=== PATIENT | male | born 1995 | race Caucasian/White ===

== ENCOUNTER → 2023-03-31 15:11 | Outpatient (CLI) | payer BC, SELFPAY ==
--- NOTE | ~2023-03-31 | XR_ITS ---
EXAMINATION: XR chest 2V DATE: 03/31/2023 15:35 INDICATION: Bronchospasm. TECHNIQUE: Frontal and lateral views of the chest were obtained. COMPARISON: None. FINDINGS: There is collapse of left lung lower lobe. No pleural effusion or pneumothorax. The heart s ize is normal. IMPRESSION: 1. Left lower lobe collapse. Reviewed, dictated and finalized at location A. IFIED NOVELL ADMINISTRATOR
== END ==
PROVIDERS: PCP Family Medicine; Visit Provider Family Medicine
DX: J98.01 Acute bronchospasm (principal); J98.19 Other pulmonary collapse
CPT/HCPCS: 71046

== ENCOUNTER 2023-04-23 19:49 | Emergency (ER) | payer BC, SELFPAY ==
--- NOTE | ~2023-04-23 | XR_ITS ---
EXAMINATION: XR chest 2V DATE: 04/23/2023 20:15 INDICATION: Shortness of breath. Cough. TECHNIQUE: Frontal and lateral views of the chest were obtained. COMPARISON: Chest 2 views 03/31/2023 FINDINGS: There is persisting collapse of left lower lobe. No pleural effusion or pneumothorax. The h eart size is normal. IMPRESSION: 1. Persistent collapse of left lung lower lobe. Consider chest CT with contrast. Reviewed, dictated and finalized at location E. ETING TEACHER IMPRESSION: 1. Persistent collapse of left lung lower lobe. Consider chest CT with contrast .
--- NOTE | ~2023-04-23 | CT_ITS ---
Clinical Indication: Dyspnea CT Scan of the Chest with Contrast: Technique: Contiguous sections were acquired throughout the chest after intravenous administration of 100 cc of Omnipaque 350. Dose reduction technique was used on this scan by utilizing automated expos ure control and iterative reconstruction technique. The dose-length product (DLP) was 462.56 mGy-cm. Findings: There is no evidence of any significant mediastinal, hilar or axillary lymphadenopathy. There is no f illing defect in the pulmonary arterial tree to suggest pulmonary embolus. There is no evidence of ao rtic dissection or aneurysm. There is no evidence of pleural or pericardial effusion. There is complete left lower lobe atelectasis. Remainder of the lungs are clear. Images through the upper abdomen reveal no abnormalities. Impression: No evidence of pulmonary embolus, aortic dissection, or aortic aneurysm. Complete left lower lobe atelectasis. If there is concern for obstruction/endobronchial lesion, consi noelle bronchoscopy. No mass lesion is well delineated on this exam. Reviewed, dictated and finalized at [facility]. SURE CONTROL SUPERVISOR Impression: No evidence of pulmonary embolus, aortic dissection, or aortic aneurysm. Complete left lower lobe atelectasis. If there is concern for obstruction/endob ronchial lesion, consider bronchoscopy. No mass lesion is well delineated on th is exam.
[2023-04-23 19:50] VITALS: BP 117/67; PULSE 89; RESP 18; TEMP 36.6; O2SAT 98
[2023-04-23 23:54] VITALS: BP 128/69; PULSE 85; PULSE 88; RESP 17; TEMP 37.3; O2SAT 99
[2023-04-23 23:55] VITALS: O2SAT 100
[2023-04-23 23:57] VITALS: O2SAT 100
[2023-04-24 00:50] LABS: Basophils Percent Auto 0.2 % (0.2-1.2); Eosinophils Percent Auto 0.6 % (0-4.4); Hematocrit 44.8 % (42.0-52.0); Hemoglobin 14.9 g/dL (14.0-18.0); Immature Granulocyte Absolute 0.02 K/mm3 (0.00-0.031); Immature Granulocyte Percent A 0.4 % (0-0.5); Immature Platelet Fraction Pct 2.7 % (0.9-11.2); Lymphocytes Absolute Auto 1.07 K/mm3 (0.9-3.2); Lymphocytes Percent Auto 21.1 % (18.3-44.2); Mean Corpuscular HGB Conc 33.3 g/dl (32-36); Mean Corpuscular Hemoglobin 28.8 pg (26-34); Mean Corpuscular Volume 86.7 fl (80-100); Mean Platelet Volume 9.3 fl (7.4-10.4); Monocytes Absolute Auto 0.5 K/mm3 (0.1-0.6); Monocytes Percent Auto 10.5 % (2.6-8.5); Neutrophils Absolute Auto 3.4 K/mm3 (1.3-6.7); Neutrophils Percent Auto 67.2 % (45.5-73.1); Platelet Count Result 130 k/mm3 (150-375); Red Blood Count 5.17 M/mm3 (4.6-6.20); Red Cell Distribution Width 12.9 % (11.5-14.5); White Blood Count 5.1 K/mm3 (4.5-10.0)
[2023-04-24 00:54] LABS: Lactic Acid Reflex 1.1 mmol/L (0.7-2.0)
[2023-04-24 00:56] LABS: Alanine Aminotransferase 29 U/L (6-50); Albumin Level 4.3 g/dL (3.5-5.1); Alkaline Phosphatase 82 U/L (38-126); Anion Gap 9 mmol/L (8-16); Aspartate Amino Transferase 33 U/L (17-59); Bilirubin,Total 0.7 mg/dL (0.2-1.3); Blood Urea Nitrogen 11 mg/dL (9-20); Calcium 8.2 mg/dL (8.4-10.2); Carbon Dioxide 33 mmol/L (22-30); Chloride 95 mmol/L (98-107); Estimated CRCL calculation 121 ml/min; Estimated Glomerular Filt Rate > 60; Glucose 82 mg/dL (65-110); Potassium 3.1 mmol/L (3.4-5.0); Sodium 137 mmol/L (137-145)
[2023-04-24 01:12] LABS: Procalcitonin 0.3 ng/mL
[2023-04-24 01:16] VITALS: BP 134/80; PULSE 75; RESP 20; O2SAT 100
[2023-04-24 01:19] LABS: Influenza A QL RT-PCR Negative (Negative); Influenza B QL RT-PCR Negative (Negative); RSV RNA, RT-PCR Negative (Negative); SARS-CoV-2 RNA PCR Negative (Negative)
--- NOTE | 2023-04-24 01:43 | ED.GENADULT ---
HPI - General Adult General Chief complaint: Shortness of Breath/Dyspnea Stated complaint: sob Time Seen by Provider: 04/23/23 23:59 History of Present Illness HPI narrative: patient is a 28-year-old who presents emergency department chief complaint of shortness of breath patient reports that he has history of a left lower lobe collapse due to a bronchus obstruction the patient reports that he has had a bronchoscopy before in the past and reports that he had a chest x-ray that was positive several weeks ago and reports that he is continuing to have some shortness of breath at times and reports that he has been unable to get in to have a facility do a bronchoscopy on him and decided to come to our emergency department. The patient reports that he has had subjective fevers at home of reports that the symptoms are not improved by anything. Related Data Allergies Allergy/AdvReac Type Severity Reaction Status Date / Time No Known Allergies Allergy Verified 04/23/23 23:55 Review of Systems Review of Systems: A 10 system review of systems was completed on the patient and is negative except for what is stated in the HPI. Nursing and ancillary documentation was reviewed. Exam Narrative: GENERAL: Well-appearing, well-nourished, and in no acute distress. HEAD: Normocephalic, atraumatic. EYES: PERRLA and EOMI. ENT: Nares clear, no rhinorrhea or epistaxis. Mucous membranes moist. NECK: Supple. CHEST: Clear to auscultation. No respiratory distress. HEART: Regular rate and rhythm. No murmur heard. Normal peripheral pulses. ABDOMEN: Soft, nontender, nondistended, normal active bowel sounds. EXTREMITIES: Normal range of motion. No edema. SKIN: Warm, dry, no rash. NEURO: No focal deficits. Alert and oriented x3. PSYCH: Normal mood and affect. Course Vital Signs Vital signs: Vital Signs Temperature 36.6 C 04/23/23 19:50 Pulse Rate 89 04/23/23 19:50 Respiratory Rate 18 04/23/23 19:50 Blood Pressure 117/67 04/23/23 19:50 Pulse Oximetry 98 04/23/23 19:50 Oxygen Delivery Room Air 04/23/23 19:50 Temperature 37.3 C 04/23/23 23:54 Pulse Rate 84 04/24/23 02:30 Respiratory Rate 32 H 04/24/23 02:30 Blood Pressure 118/76 04/24/23 02:30 Pulse Oximetry 97 04/24/23 02:30 Oxygen Delivery Room Air 04/23/23 23:57 Medical Decision Making MDM Narrative Medical decision making narrative: differential diagnosis includes segmental collapse, pneumonia, mucous plugging patient is currently not tachypneic the patient is afebrile CT chest was obtained to evaluate the extensiveness of the collapse. There is no pneumothorax on chest x-ray we do not have pulmonary capability at this time for bronchoscopy the plan was after results to speak with Pulmonary at another facility to either arrange follow-up or transfer. The patient states that he needs to go to work and chose to leave the emergency department at this time. Vital Signs Vital Signs: Vital Signs Temperature 36.6 C 04/23/23 19:50 Pulse Rate 89 04/23/23 19:50 Respiratory Rate 18 04/23/23 19:50 Blood Pressure 117/67 04/23/23 19:50 Pulse Oximetry 98 04/23/23 19:50 Oxygen Delivery Room Air 04/23/23 19:50 Temperature 37.3 C 04/23/23 23:54 Pulse Rate 84 04/24/23 02:30 Respiratory Rate 32 H 04/24/23 02:30 Blood Pressure 118/76 04/24/23 02:30 Pulse Oximetry 97 04/24/23 02:30 Oxygen Delivery Room Air 04/23/23 23:57 Lab Data 04/24/23 00:33 04/24/23 00:33 Labs: Lab Results 04/24/23 Range/Units 00:33 WBC 5.1 (4.5-10.0) K/mm3 RBC 5.17 (4.6-6.20) M/mm3 Hgb 14.9 (14.0-18.0) g/dL Hct 44.8 (42.0-52.0) % MCV 86.7 (80-100) fl MCH 28.8 (26-34) pg MCHC 33.3 (32-36) g/dl RDW 12.9 (11.5-14.5) % Plt Count 130 L (150-375) k/mm3 MPV 9.3 (7.4-10.4) fl Immature Gran % (Auto) 0.4 (0-0.5) % Neut % (Auto) 67.2 (45.5-73.1) % Lymph
[2023-04-24 02:30] VITALS: BP 118/76; PULSE 84; RESP 19; O2SAT 97
[2023-04-24 03:30] VITALS: BP 125/74; PULSE 80; RESP 22; O2SAT 100
[2023-04-24 05:35] VITALS: BP 117/78; PULSE 88; RESP 21; TEMP 36.7; O2SAT 100
== END 2023-04-24 05:37 | disposition left against medical advice (07) ==
PROVIDERS: Emergency Provider Emergency Medicine; PCP Family Medicine
DX: J98.19 Other pulmonary collapse (principal); Z20.822 Contact with and (suspected) exposure to COVID-19; R91.8 Other nonspecific abnormal finding of lung field
CPT/HCPCS: 36415; 71046; 71275; 80053; 83605; 84145; 85025; 85055; 87040; 87637; 99284; Q9967